=== PATIENT | male | born 1975 | race Two or more races ===

== ENCOUNTER 2022-12-15 20:31 | Emergency (ER) | payer OTHER ==
[~2022-12-15] VITALS: Ht 170.2 cm; Wt 81.6 kg
[2022-12-15] MEDS ORDERED: LEVOXYL25 MCG PO (20:37)
[2022-12-15 20:57] LABS: HEMATOCRIT 40.1 % (39.0-48.0); HEMOGLOBIN 13.4 g/dL (13-16.00); MEAN CELL VOLUME 94.1 fL (80.0-100.00); MEAN CORPUSCULAR HEMOGLOBIN 31.5 pg (27.00-32.0); MEAN CORPUSCULAR HGB CONC 33.5 g/dl (32.0-36.0); PLATELET COUNT 245 K/uL (150-450); RED BLOOD COUNT 4.27 M/uL (4.00-6.00); RED CELL DISTRIBUTION WIDTH 12.5 % (11.5-14.5)
[2022-12-15 21:21] LABS: CALCIUM 9.5 mg/dL (8.5-10.1); CREATININE SERUM 1.18 mg/dL (0.70-1.30); GFR 65.61; POTASSIUM 4.15 mEq/L (3.5-5.1)
== END 2022-12-15 23:38 | disposition home or self-care (01) ==
LOC: ER 20:31
PROVIDERS: Emergency Medicine
DX: F10.129 Alcohol abuse with intoxication, unspecified (principal); R55 Syncope and collapse; Z88.0 Allergy status to penicillin